=== PATIENT | female | born 1955 | race Caucasian/White ===

== ENCOUNTER 2020-01-07 14:26 | Outpatient (CLI) | payer BC, SELFPAY ==
--- NOTE | 2020-01-07 14:28 | ECG_ITS ---
Measurements Intervals Hiram Rate: 66 P: 60 UT: 162 QRS: -10 QRSD: 92 T: 46 QT: 420 QTc: 441 Interpretive Statements SINUS RHYTHM VOLTAGE CRITERIA FOR LVH ANTERIOR INFARCT, AGE INDETERMINATE CONSIDER INFERIOR INFARCT, AGE INDETERMINATE ABNORMAL ECG Electronically Signed On 01-07-2020 14:44:56 CDT by Doug Godfrey D.O.
[2020-01-07 14:58] LABS: Blood Urea Nitrogen 14 mg/dL (7-17); Calcium 9.3 mg/dL (8.4-10.2); Carbon Dioxide 32 mmol/L (22-30); Chloride 102 mmol/L (98-107); Estimated Glomerular Filt Rate > 60; Glucose 178 mg/dL (65-105); Potassium 3.8 mmol/L (3.4-5.0); Sodium 141 mmol/L (137-145)
== END 2020-01-07 14:27 | disposition home or self-care (01) ==
PROVIDERS: Anesthesiology; PCP Internal Medicine; Visit Provider Podiatrist Foot & Ankle Surgery
DX: Z01.818 Encounter for other preprocedural examination (principal); E11.9 Type 2 diabetes mellitus without complications; I10 Essential (primary) hypertension; R94.31 Abnormal electrocardiogram [ECG] [EKG]
CPT/HCPCS: 36415; 80048; 93005

== ENCOUNTER 2020-01-14 02:13 | Outpatient (CLI) | payer BC, SELFPAY ==
[2020-01-14 18:39] LABS: SARS-CoV-2 RNA PCR Negative
== END 2020-01-14 02:14 | disposition home or self-care (01) ==
LOC: ANHCOVIDDT 02:13
PROVIDERS: Anesthesiology; PCP Internal Medicine; Visit Provider Podiatrist Foot & Ankle Surgery
DX: Z01.812 Encounter for preprocedural laboratory examination (principal); Z11.59 Encounter for screening for other viral diseases
CPT/HCPCS: 87635; C9803; U0003

== ENCOUNTER 2020-01-16 02:23 | Day surgery (SDC) | payer BC, SELFPAY ==
[2020-01-05 17:30] VITALS: BMI 27.9
--- NOTE | ~2020-01-16 | XR_ITS ---
XR surgery orthopedic DATE: 01/16/2020 09:37 INDICATION: Right foot surgical procedure TECHNIQUE: Single frontal spot C-arm exposure of the toes 7 seconds fluoroscopy time 0.4955 cGycm2 total DAP COMPARISON: None FINDINGS: A radiopaque fusion device at the proximal and middle phalanges bridges the proximal interp halangeal joint of the fourth digit. IMPRESSION: Surgical fusion at proximal interphalangeal joint of fourth digit Reviewed, dictated and finalized at [facility]. Reviewed, dictated and finalized at [facility].
--- NOTE | 2020-01-16 07:23 | WPDHPUPDATE1 ---
History and Physical Update Update Date/Time: 01/16/20 07:23 History and Physical has been reviewed, including an updated exam of the patient. There are NO changes in the patient's condition. Risks, benefits, and alternatives have been discussed and questions answered. Patient agrees to proceed with procedure.
[2020-01-16] MEDS: LACTATED RINGERS 1,000 ML 30 ML IV CONT (07:38)
[2020-01-16 07:40] VITALS: BP 173/89; PULSE 71; RESP 16; TEMP 36.8; O2SAT 100
--- NOTE | 2020-01-16 08:33 | WPDANESEPPF ---
Anes - Initial Pre Proc Eval Procedure: Operation Date: 01/16/20 09:00 Proposed Procedures p Hammer Toe Repair Fourth And Fifth Digits Right Foot - David Jones JR, MD s Partial Phalangectomy Right Fifth Digit - David Jones JR, MD Date/Time: 01/16/20 08:33 Surgeon: David Jones JR, MD Pre Op Diagnosis: Hammer Toe 4th & 5th Digit Right Foot Patient Data Age: 64 Gender: F Height: 1.8 m Weight: 91 kg Last Vital Signs Temp 36.8 C 01/16/20 07:40 Pulse 71 01/16/20 07:40 Resp 16 01/16/20 07:40 BP 173/89 H 01/16/20 07:40 Pulse Ox 100 01/16/20 07:40 Allergies Allergy/AdvReac Type Severity Reaction Status Date / Time No Known Allergies Allergy Verified 01/16/20 06:55 Home Medications Medication Instructions Recorded Confirmed Type dulaglutide [Trulicity] 0.75 mg SUBCUT WEEKLY 01/05/20 01/05/20 History esomeprazole magnesium [Nexium 20 mg PO DAILY 01/05/20 01/05/20 History 24HR] lisinopril 20 mg PO DAILY 01/05/20 01/05/20 History trpstqwy-swh-qfzh-FA-lutein 1 tablet PO DAILY 01/05/20 01/05/20 History [Centrum Silver Women] rosuvastatin 5 mg PO HS 01/05/20 01/05/20 History Patient hx anesthesia problems: none Family hx anesthesia problems: none PMFSH Past Medical History Medical History (Updated 01/16/20 @ 08:34 by Serafin Mcmullen MD) Diabetes Gastroesophageal reflux disease HTN (hypertension) Hypercholesterolemia Family History Family History (Updated 01/21/16 @ 23:19 by DOCTOR UNKNOWN) Father Family history of diabetes mellitus in first degree relative Other Diabetes mellitus Family history of coronary artery disease Social History Social History Smoking status: Never smoker Second hand tobacco smoke exposure: No Alcohol intake: never Substance use: never Living arrangements: alone Spiritual care concerns: No Anes - Eval Final PreProcedure Day of Procedure 01/16/20 08:33 Patient weight: overweight Heart: regular rate and rhythm Lungs: clear to auscultation and normal air movement Airway: Mallampati scale class II Neurological: alert and oriented Last oral intake: >/= 8 hours ASA classification: III Emergent: no Anesthetic plan: proceed Anesthesia type and monitoring: general GIVS and LMA Informed Consent: The patient's anesthetic plan and its attendant risks and benefits were discussed with the patient/family/POA. Questions were solicited and answers provided to the satisfaction of the patient/family/POA.
[2020-01-16] MEDS: ceFAZolin 2 GM/D5W 50 ML 2 GM/50 ML BAG IVPB (08:39)
[2020-01-16] MEDS: LIDOCAINE HCL 2% LOCAL INJ 20 ML VIAL INFILTRATE (09:04)
[2020-01-16 09:42] VITALS: BP 144/94; PULSE 77; RESP 16; O2SAT 95
--- NOTE | 2020-01-16 09:47 | PM.OP ---
Procedure Note - Brief Procedure Note - Brief Date of procedure: 01/16/20 Pre-op diagnosis: Hammer Toe 4th & 5th Digit Right Foot Post-op diagnosis: same Procedure performed: 1. Hammertoe repair 4th and 5th digits right foot 2. Partial distal phalangectomy right 5th digit Anesthesia: GLMA Surgeon: David Jones JR, DPM Estimated blood loss (mL): 1 Complications: No immediate complications Condition: stable Disposition: same day
[2020-01-16 10:10] VITALS: BP 176/100; PULSE 57
[2020-01-16 10:13] LABS: Glucose Point of Care 80 (65-105)
[2020-01-16] MEDS: oxyCODONE/ACETAMINOPHEN 5-325 MG TABLET 1 TABLET PO (10:18)
--- NOTE | 2020-01-16 10:37 | SUR.PHASEII ---
1035: Notified Dr. Mcmullen of patient's BP being 170/93. He was ok sending patient home with that BP.
[2020-01-16 10:40] VITALS: BP 170/97; PULSE 59
--- NOTE | 2020-01-16 19:33 | OP_ITS ---
DATE OF PROCEDURE: 01/16/2020 PREOPERATIVE DIAGNOSES: 1. Hammertoe deformity 4th and 5th digits of the right foot. 2. Heloma molle 4th interdigital space, right foot. POSTOPERATIVE DIAGNOSES: 1. Hammertoe deformity 4th and 5th digits of the right foot. 2. Heloma molle 4th interdigital space, right foot. PROCEDURES: 1. Hammertoe repair of the 4th and 5th digits of the right foot. 2. Hemiphalangectomy of the right distal phalanx, 5th digit. PATHOLOGY: None. ANESTHESIA: MAC with local. HEMOSTASIS: Pneumatic ankle tourniquet at 250 mmHg. ESTIMATED BLOOD LOSS: Minimal. MATERIALS USED: One IQuum extra-small straight Phalinx hammertoe implant, 3-0 Vicryl, 4-0 Vicryl, and 4-0 Prolene. INJECTABLES: 20 mL of 1:1 mixture of 2% lidocaine plain and 0.5% Marcaine plain injected preoperatively. COMPLICATIONS: None. PROCEDURE IN DETAIL: Under mild sedation, the patient was brought into the operating room, placed on the operating table in the supine position. Pneumatic ankle tourniquet was placed about the patient's right ankle. Following IV sedation, local anesthesia was obtained about the right forefoot utilizing 20 mL of a 1:1 mixture of 2% lidocaine plain and 0.5% Marcaine plain. The foot was then scrubbed, prepped, and draped in the usual aseptic manner. An Esmarch bandage was then used to examine the patient's right foot and the pneumatic ankle tourniquet was then inflated. Attention was directed to the dorsal aspect of the 4th digit of the right foot where an incision was made just proximal to the distal interphalangeal joint and extending to the central shaft of the proximal phalanx. Incision was continued deep down through the subcutaneous tissues using sharp and blunt dissection. All bleeders were ligated and cauterized as necessary. At this point, a transverse tenotomy was performed over the dorsal aspect of the proximal interphalangeal joint of the 4th digit. At this point, the periosteum and capsular structures were freed from the head of the proximal phalanx as well as the base of the middle phalanx. Utilizing a small oscillating bone saw, the head of the proximal phalanx was resected, so was the articular cartilage to the base of the middle phalanx. At this point, utilizing the standard principles and techniques, utilizing the cannulated system for the [employer] Phalinx hammertoe implant system, the proximal phalanx was 1st prepared distally and so was the base of the middle phalanx and the extra-small [employer] Phalinx hammertoe implant was positioned within the proximal interphalangeal joint with excellent apposition noted of the joint. The wound site was flushed with copious amounts of sterile saline. The 4th digit was noted to be significantly improved as far as the sagittal plane deformity and in the rectus position. Next, the periosteum and capsular structures and tendinous structures were reapproximated overlying the dorsum of the proximal interphalangeal joint of the 4th digit. Next, the subcutaneous structures were reapproximated, coapted utilizing 4-0 Vicryl. Next, the skin was reapproximated, coapted utilizing 4-0 Prolene in simple interrupted suture technique. Attention was then directed to the dorsal aspect of the 5th digit of the right foot where an incision was made overlying the head of the proximal phalanx. Incision was continued deep down through sinus tissues using sharp and blunt dissection. All bleeders were ligated and cauterized as necessary. At this point, a transverse tenotomy was performed over the dorsal aspect of the proximal interphalangeal joint of the right 5th digit. Next, the head of the proximal phalanx was freed of its capsular tendinous and ligamentous attachments. Next, utilizing a small oscillating bone
== END 2020-01-16 11:05 | disposition home or self-care (01) ==
PROVIDERS: PCP Internal Medicine; Visit Provider Podiatrist Foot & Ankle Surgery
PROC: (CPT 28285; principal; 2020-01-16 09:00)
PROC: (CPT 28750; 2020-01-16 09:00)
DX: M20.41 Other hammer toe(s) (acquired), right foot (principal); L84 Corns and callosities; I10 Essential (primary) hypertension; E11.9 Type 2 diabetes mellitus without complications; E78.00 Pure hypercholesterolemia, unspecified; K21.9 Gastro-esophageal reflux disease without esophagitis; Z79.899 Other long term (current) drug therapy
CPT/HCPCS: 28285 ×2; 28124; A9270; J0690; J2250; J2405; J2704; J3010; J7120

== ENCOUNTER 2021-06-17 10:02 | Emergency (ER) | payer MEDICARE, SELFPAY ==
[2021-06-17 10:18] VITALS: BP 137/75; PULSE 94; RESP 18; TEMP 36.6; O2SAT 97
--- NOTE | 2021-06-17 10:36 | ED.URI ---
HPI - URI/Sore Throat General Chief Complaint: Upper Respiratory Infection Stated Complaint: fatigue,fever,cough,bodyaches Time Seen by Provider: 06/17/21 10:31 Source: patient and RN notes reviewed Mode of arrival: ambulatory Limitations: no limitations History of Present Illness HPI Narrative: Christine is a fixed 66-year-old female patient who ambulated [facility]. She complains of back pain and fever. Patient states the back pain started on Sunday she started with an on and off fever on Sunday also states she has nasal congestion and cold. Patient has not had the flu vaccine or Covid vaccine. MD elicited complaint: fever Related Data Home Medications Medication Instructions Recorded Confirmed esomeprazole magnesium [Nexium 20 mg PO DAILY 01/05/20 06/17/21 24HR] lisinopril 20 mg PO DAILY 01/05/20 06/17/21 metformin 500 mg PO TID 06/17/21 06/17/21 Allergies Allergy/AdvReac Type Severity Reaction Status Date / Time No Known Allergies Allergy Verified 06/17/21 10:29 Review of Systems Review of Systems: CONSTITUTIONAL: + body aches,+ fever, denies chills, or sweats. EYES: Denies visual changes, redness, or discharge. ENT: Denies rhinorrhea, +congestion, denies sore throat, or otalgia. CARDIOVASCULAR: Denies chest pain, palpitations, or edema. RESPIRATORY: +cough denies dyspnea. GASTROINTESTINAL: Denies abdominal pain, nausea, vomiting, or diarrhea. GENITOURINARY: Denies dysuria or hematuria. SKIN: Denies rash, itching, or wounds. MUSCULOSKELETAL: + back pain, denies joint pain, or myalgia. NEUROLOGIC: Denies headache, numbness, tingling, or weakness. PSYCH: Denies depression or anxiety. All systems reviewed & are unremarkable except as noted in HPI and below PMFSH Past Medical History Medical History Diabetes Gastroesophageal reflux disease HTN (hypertension) Hypercholesterolemia Family History Family History Father Family history of diabetes mellitus in first degree relative Other Diabetes mellitus Family history of coronary artery disease Social History Social History (Reviewed 12/24/21 @ 10:37 by LIS Mauricio Smoking status: Never smoker Second hand tobacco smoke exposure: No Alcohol intake: never Substance use: never Spiritual care concerns: No Comments At time of signature, I have reviewed and agree with nursing past medical, surgical, social and family history unless otherwise noted. Please see nursing chart for further information. There is no relevant family history pertinent to the presenting complaint Exam Narrative: GENERAL: Well-appearing, well-nourished, and in no acute distress. HEAD: Normocephalic, atraumatic. EYES: EOMI. No redness or drainage. Conjunctivae normal. ENT: Mucous membranes pink and moist. Nares clear. No rhinorrhea. TMs normal bilaterally. Throat normal. Uvula midline. NECK: Normal AROM. Supple. . CHEST: No respiratory distress. Clear to auscultation. MUSCULOSKELETAL: No bony tenderness. EXTREMITIES: Normal range of motion. No edema. SKIN: Warm, dry, no rash. Capillary refill normal. Normal skin turgor. NEURO: No focal deficits. Alert and oriented x3. Gait steady. PSYCH: Normal affect. No signs of depression or anxiety. Course Vital Signs Vital signs: Vital Signs Temperature 36.6 C 06/17/21 10:18 Pulse Rate 94 06/17/21 10:18 Respiratory Rate 18 06/17/21 10:18 Blood Pressure 137/75 06/17/21 10:18 Pulse Oximetry 97 06/17/21 10:18 Temperature 36.6 C 06/17/21 10:18 Pulse Rate 94 06/17/21 10:18 Respiratory Rate 18 06/17/21 10:18 Blood Pressure 137/75 06/17/21 10:18 Pulse Oximetry 97 06/17/21 10:18 MDM - URI/Sore Throat MDM Narrative Medical decision making narrative: Patient's rapid COVID-19 test is positive. Patient will be quarantine 10 days from
== END 2021-06-17 10:46 | disposition home or self-care (01) ==
PROVIDERS: Emergency Provider Nurse Practitioner Family; PCP Internal Medicine
DX: U07.1 COVID-19 (principal); E11.9 Type 2 diabetes mellitus without complications; K21.9 Gastro-esophageal reflux disease without esophagitis; I10 Essential (primary) hypertension; E78.00 Pure hypercholesterolemia, unspecified
CPT/HCPCS: 87426; 87804; 99213; C9803; G0463

== ENCOUNTER 2022-10-19 10:07 | Outpatient (CLI) | payer MEDICARE, SELFPAY ==
[2022-10-19 10:53] LABS: Alanine Aminotransferase 46 U/L (6-35); Aspartate Amino Transferase 37 U/L (14-36)
== END 2022-10-19 10:08 | disposition home or self-care (01) ==
PROVIDERS: PCP Family Medicine; Visit Provider Podiatrist Foot & Ankle Surgery
DX: B35.1 Tinea unguium (principal)
CPT/HCPCS: 36415; 84450; 84460

== ENCOUNTER 2023-03-01 13:52 | Outpatient (CLI) | payer MEDICARE, SELFPAY ==
[2023-03-01 14:34] LABS: Alanine Aminotransferase 45 U/L (6-35); Aspartate Amino Transferase 39 U/L (14-36)
== END 2023-03-01 13:53 | disposition home or self-care (01) ==
LOC: ANHLAB 13:54
PROVIDERS: PCP Family Medicine; Visit Provider Podiatrist Foot & Ankle Surgery
DX: B35.1 Tinea unguium (principal)
CPT/HCPCS: 36415; 84450; 84460